=== PATIENT | male | born 1985 | race Caucasian/White ===

== ENCOUNTER 2018-09-06 01:35 | Emergency (ER) | payer SELFPAY ==
[~2018-09-06] VITALS: Ht 193 cm; Wt 186.0 kg
[~2018-09-06 01:35] MED LIST: MAGN296S68 CORPAK; ONDA8TAB6 PO; SUCR1TAB34 PO; TRAM50TA2 PO
[2018-09-06] MEDS ORDERED: mag hydrox/Alum hydrox/simeth 30ml oral suspension PO ONE (02:05)
[2018-09-06] MEDS ORDERED: ondansetron/PF 4mg/2ml inj IV ONE (02:05)
[2018-09-06] MEDS ORDERED: morphine 4 MG/ML inj SYRINge IV ONE (02:05)
[2018-09-06] MEDS ORDERED: metoclopramide 5 mg/ml inj IV ONE (02:05)
[2018-09-06] MEDS ORDERED: LIDOcaine Viscous 15ml cup PO ONE (02:05)
[2018-09-06] MEDS ORDERED: ESOMEPRAZOLE 40 MG VIAL IV STA (02:05)
[2018-09-06] MEDS ORDERED: famotidine/PF 10 mg/ml inj IV ONE (02:05)
[2018-09-06] MEDS ORDERED: normal saline 1000ml 1,000 ML IV ONE (02:10)
[2018-09-06 02:13] LABS: BASOPHILS % (AUTO) 0.3 % (0-1); EOSINOPHILS # (AUTO) 0.3 X10'3 (0-0.9); EOSINOPHILS % (AUTO) 2.3 % (0-6); HEMATOCRIT 48.7 % (42.0-52.0); HEMOGLOBIN 16.4 g/dl (14.0-17.9); LYMPHOCYTES # (AUTO) 2.4 X10'3 (1.1-4.8); LYMPHOCYTES % (AUTO) 19.3 % (21-51); MEAN CORPUSCULAR HGB CONC 33.7 g/dL (33.0-36.5); MEAN CORPUSCULAR VOLUME 86.1 FL (78-98); MEAN PLATELET VOLUME 8.8 FL (7.4-10.4); MONOCYTES # (AUTO) 0.8 X10'3 (0-0.9); MONOCYTES % (AUTO) 6.3 % (2-12); NEUTROPHILS # (AUTO) 8.7 X10'3 (1.8-7.7); NEUTROPHILS % (AUTO) 71.8 % (42-75); PLATELET COUNT 297 X10'3 (140-440); RED BLOOD COUNT 5.65 X10'6 (4.70-6.10); WHITE BLOOD COUNT 12.2 X10'3 (4.5-11.0)
[2018-09-06 02:21] LABS: PARTIAL THROMBOPLASTIN TIME 33 SECONDS (22-32)
[2018-09-06 02:22] LABS: ALANINE AMINOTRANSFERASE 40 U/L (12-78); ALBUMIN 3.9 G/DL (3.4-5.0); ALBUMIN/GLOBULIN RATIO 1.1 (1.1-1.5); ALKALINE PHOSPHATASE 95 IU/L (46-116); ANION GAP 12 (8-16); ASPARTATE AMINO TRANSFERASE 13 U/L (10-37); BILIRUBIN,TOTAL 0.4 MG/DL (0.1-1.0); BLOOD UREA NITROGEN 11 MG/DL (7-18); BUN/CREATININE RATIO 12.9 (5.4-32.0); CHLORIDE 102 MMOL/L (99-107); CREATININE 0.85 MG/DL (0.60-1.10); GLUCOSE 142 MG/DL (70-104); POTASSIUM 3.7 MMOL/L (3.5-5.1); SODIUM 137 MMOL/L (135-145); TOTAL CARBON DIOXIDE 23.4 MMOL/L (24-32); TOTAL PROTEIN 7.5 G/DL (6.4-8.2); eGFR > 90 ML/MIN
[2018-09-06] MEDS ORDERED: diphenhydrAMINE 50 mg/ml inj IV ONE (02:45)
[2018-09-06] MEDS ORDERED: LORazepam 2 mg/ml vial IV ONE (02:45)
[2018-09-06] MEDS ORDERED: ketorolac trometh. 30mg/ml inj. IV ONE (04:20)
[2018-09-06] MEDS ORDERED: PANT-47 PO (04:53)
[2018-09-06] MEDS ORDERED: SUCR1TAB34 PO (04:53)
[2018-09-06] MEDS ORDERED: ONDA8TAB6 PO (04:53)
[2018-09-06 04:59] VITALS: BP 174/104
== END 2018-09-06 05:14 | disposition home or self-care (01) ==
LOC: ER 01:37
DX: K29.70 Gastritis, unspecified, without bleeding (principal); K21.9 Gastro-esophageal reflux disease without esophagitis; F41.9 Anxiety disorder, unspecified; F12.90 Cannabis use, unspecified, uncomplicated; F10.99 Alcohol use, unspecified with unspecified alcohol-induced disorder; Z60.2 Problems related to living alone; Z79.899 Other long term (current) drug therapy; Y90.9 Presence of alcohol in blood, level not specified
CPT/HCPCS: 36415; 71045; 80053; 84484; 85025; 85610; 85730; 93005; 96361; 96374; 96375; 99284; J1200; J1885; J2060; J2270; J2405; J2765; J3490; J7030